=== PATIENT | female | born 1965 | race Two or more races ===

== ENCOUNTER 2021-02-08 21:54 | Emergency (ER) | payer SELFPAY ==
--- NOTE | 2021-02-08 22:53 | CR ---
Indication: Left foot Pain Technique: Three views of the left foot. Comparison: None Findings: A fracture of the base of the 5th metatarsal is identified. A small plantar calcaneal spur is identified. Mild degenerative changes are identified. Impression: Fracture the base of the 5th metatarsal Dictated by Nancy Munoz MD @ 02/08/2021 10:52:20 PM (Electronically Signed)
[2021-02-08] MEDS ORDERED: traMADol 50 MG Tab PO ONE (23:23)
[2021-02-08] MEDS ORDERED: Ibuprofen 600 MG Tab PO ONE (23:23)
--- NOTE | 2021-02-08 23:37 | EDM.PDOC ---
ED HPI GENERAL MEDICAL PROBLEM - General Chief Complaint: Lower Extremity Injury/Pain Stated Complaint: LT FOOT PAIN Time Seen by Provider: 02/08/21 22:40 - History of Present Illness INITIAL COMMENTS - FREE TEXT/NARRATIVE: HISTORY AND PHYSICAL: History of present illness: This is a 55-year-old female with a history significant for hypertension diabetes who presents ER today secondary to pain to her left fifth metatarsal for approximately 7 to 10 days. Patient reports that she has had frequent falls in the past and thinks that she might of fallen prior to the initiation of the pain. Patient denies any recent fevers, shakes, chills, nausea, vomiting, diarrhea. Patient denies any alcohol or drug use. Patient reports that she smokes 1 cigarette every 3 to 4 days. Patient reports that she is recently diagnosed with pancreatic cancer. Review of systems: As per history of present illness and below otherwise all systems reviewed and negative. Past medical history: As per history of present illness and as reviewed below otherwise noncontributory. Surgical history: As per history of present illness and as reviewed below otherwise noncontributory. Social history: No reported history of drug abuse. Family history: As per history of present illness and as reviewed below otherwise noncontributory. Physical exam: This patient was seen and evaluated during the 2019 SARS-CoV-2 novel coronavirus pandemic period. Community viral transmission is ongoing at time of this encounter and the emergency department is operating under pandemic response procedures. Constitutional: Patient is oriented to person, place, and time. Appears well- developed and well-nourished. No distress. HEENT: Moist mucous membranes Head: Normocephalic and atraumatic Eyes: Right eye exhibits no discharge. Left eye exhibits no discharge. No scleral icterus Neck: Normal range of motion. No tracheal deviation present. Cardiovascular: Normal rate and regular rhythm. Pulmonary: Effort normal, no respiratory distress. Abdominal: No distention Musculoskeletal: Normal range of motion Neurologic: Alert and oriented to person, place and time. Skin: [place], warm and dry. Psychiatric: Normal mood and affect. Behavior is normal. Judgment and thought content normal. Nursing note and vital signs have been reviewed Patient's ER physical exam is significant for tenderness to palpation and swelling over the base of her fifth metatarsal. Diagnostics: X-ray of left foot: Nondisplaced fracture at the base of the fifth metatarsal styloid consistent with a pseudo-Rojas fracture. Therapeutics: Hard soled shoe, crutches, ibuprofen, Ultram Assessment and plan: 55-year-old female who presents to the ER today secondary to pain to her left foot. Patient initially did not recall any injury. She reports pain has been there for approximately 1 week however after showing her the x-ray revealing a pseudo-Rojas fracture, the patient reports that she thinks she might of fallen approximately 7 to 10 days ago. Patient be placed in a hard soled shoe, crutches and pain medicines. Patient will be given follow-up with podiatry. DME note: Hard soled shoe and crutches were ordered to be used for 2 weeks. Patient has a fracture of the base of the fifth metatarsal styloid. This will help with healing of the fracture fragment. Definitive disposition and diagnosis as appropriate pending reevaluation and review of above. 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 Musculoskeletal History: Reports: None Neurological History: Reports: None Psychiatric History: Reports: None Endocrine/Metabolic History: Reports: Diabetes, Type II Dermatologic History: Reports: None - Infectious Disease History Infectious Disease History: Reports: Chicken Pox - Past Surgical History Head Surgeries/Procedures: Reports: None Social & Family History - Family History Family Medical History: No Pertinent Family History - Caffeine Use Caffeine Use: Reports: None - Recreational Drug Use Recreational Drug Use: No Review of Systems - Review of Systems Review Of Systems: See Below ED EXAM, GENERAL - Physical Exam Exam: See Below Course - Vital Signs Last Recorded V/S: Last Vital Signs Temp 97.2 F 02/08/21 22:30 Pulse 60 02/08/21 22:30 Resp 18 02/08/21 22:30 BP 152/74 H 02/08/21 22:30 Pulse Ox 99 02/08/21 22:30 - Orders/Labs/Meds Orders: Active Orders 24 hr Category Date Time Status DME for Discharge [COMM] Stat Oth 02/08/21 23:23 Ordered Meds: Medications Discontinued Medications Generic Name Dose Route Start Last Admin Trade Name Dom PRN Reason Stop Dose Admin Ibuprofen 600 mg 02/08/21 23:23 02/08/21 23:35 Ibuprofen 600 Mg Tab PO 02/08/21 23:24 600 mg ONETIME ONE Administration Tramadol HCl 50 mg 02/08/21 23:23 02/08/21 23:35 Tramadol 50 Mg Tab PO 02/08/21 23:24 50 mg ONETIME ONE Administration Departure - Departure Time of Disposition: 23:36 Disposition: Home, Self-Care 01 Condition: Good Clinical Impression: Fracture of base of fifth metatarsal bone of left foot Qualifiers: Encounter type: initial encounter Fracture type: closed Qualified Code(s): S92.352A - Displaced fracture of fifth metatarsal bone, left foot, initial encounter for closed fracture - Discharge Information Instructions: Crutch Use, Adult, [id number], Cast or Splint Care, Adult, [id number], Metatarsal Fracture Referrals: PCP,None [Primary Care Provider] - Forms: ED Department Discharge Additional Instructions: You were seen and evaluated in the ER today secondary to pain to your left foot. The x-ray reveals a fracture through the base of the fifth metatarsal styloid. This to be treated with a hard soled shoe and crutches for assistance with pain. You can weight-bear as tolerated. Please follow-up with podiatry in the next 1 to 2 weeks for reevaluation. You will be given the phone number for Dr. Reid. You will be given a prescription for ibuprofen and Ultram to help you with your pain and discomfort. Please call Dr. Khang Reid at the [facility]. The phone number is [phone]. He is located at [address] [place] [address], [address], [place], [place]. The following information is given to patients seen in the emergency department who are being discharged to home. This information is to outline your options for follow-up care. We provide all patients seen in our emergency department with a follow-up referral. The need for follow-up, as well as the timing and circumstances, are variable depending upon the specifics of your emergency department visit. If you don't have a primary care physician on staff, we will provide you with a referral. We always advise you to contact your personal physician following an emergency department visit to inform them of the circumstance of the visit and for follow-up with them and/or the need for any referrals to a consulting specialist. The emergency department will also refer you to a specialist when appropriate. This referral assures that you have the opportunity for follow-up care with a sp ecialist. All of these measure are taken in an effort to provide you with optimal care, which includes your follow-up. Under all circumstances we always encourage you to contact your private physicia n who remains a resource for coordinating your care. When calling for follow-up care, please make the office aware that this follow-up is from your recent emergency room visit. If for any reason you are refused follow-up, please contact the [facility] Department at and asked to speak to the emergency department charge nurse. [facility] [address] [place] [address] [id number] [address] [address] Sepsis Event Note (ED) - Focused Exam Vital Signs: Vital Signs Temp Pulse Resp BP Pulse Ox 02/08/21 22:30 97.2 F 60 18 152/74 H 99 - My Orders Last 24 Hours: My Active Orders 02/08/21 23:23 DME for Discharge [COMM] Stat - Assessment/Plan Last 24 Hours: My Active Orders 02/08/21 23:23 DME for Discharge [COMM] Stat
== END 2021-02-09 | disposition home or self-care (01) ==
LOC: MW.ED 21:54
DX: S92.352A Displaced fracture of fifth metatarsal bone, left foot, initial encounter for closed fracture (principal); J45.909 Unspecified asthma, uncomplicated; K21.9 Gastro-esophageal reflux disease without esophagitis; F17.210 Nicotine dependence, cigarettes, uncomplicated; E11.9 Type 2 diabetes mellitus without complications; Z79.84 Long term (current) use of oral hypoglycemic drugs; Z79.899 Other long term (current) drug therapy; X58.XXXA Exposure to other specified factors, initial encounter
CPT/HCPCS: 73630; 99283; A9270

== ENCOUNTER 2021-03-10 13:10 | Emergency (ER) | payer OTHER ==
--- NOTE | 2021-03-10 13:21 | EDM.PDOC ---
ED HPI GENERAL MEDICAL PROBLEM - General Chief Complaint: Lower Extremity Injury/Pain Stated Complaint: LT FOOT INJURY Time Seen by Provider: 03/10/21 13:12 Source of Information: Reports: Patient History Limitations: Reports: No Limitations - History of Present Illness INITIAL COMMENTS - FREE TEXT/NARRATIVE: 55F PMHx NIDDM2, recently dx pancreatic CA presents for pain to L foot. Of note patient was seen in the ER 1-month ago for fifth metatarsal fracture of the same extremity. Patient notes that she never really could pinpoint the exact injury mechanism or why she broke her fifth metatarsal. States she was unable to follow-up with podiatry secondary to insurance difficulties although she now does have medical insurance. She notes that despite resting the extremity she has continued pain in her left fifth toe radiating to diffuse foot and ankle. She denies any new injuries. Left Foot Pain Score (Numeric/FACES): 10 - Related Data Allergies Allergy/AdvReac Type Severity Reaction Status Date / Time No Known Allergies Allergy Verified 03/10/21 13:14 Home Meds: Home Meds Montelukast Sodium [Singulair] 10 mg PO DAILY 02/08/21 [History] Omeprazole Magnesium [Prilosec] 10 mg PO DAILY 02/08/21 [History] Pramipexole [Mirapex] 1 mg PO DAILY 02/08/21 [History] glipiZIDE [Glipizide ER] 5 mg PO DAILY 02/08/21 [History] Ibuprofen [Motrin] 600 mg PO Q6H PRN #20 tab 03/10/21 [Rx] Past Medical History HEENT History: Reports: None Cardiovascular History: Reports: None Respiratory History: Reports: Asthma 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: Reports: GERD 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 Musculoskeletal History: Reports: None Neurological History: Reports: None Psychiatric History: Reports: None Endocrine/Metabolic History: Reports: Diabetes, Type II Dermatologic History: Reports: None - Infectious Disease History Infectious Disease History: Reports: Chicken Pox - Past Surgical History Head Surgeries/Procedures: Reports: None Social & Family History - Family History Family Medical History: No Pertinent Family History - Caffeine Use Caffeine Use: Reports: None - Recreational Drug Use Recreational Drug Use: No Review of Systems - Review of Systems Review Of Systems: Comprehensive ROS is negative, except as noted in HPI. ED EXAM, GENERAL - Physical Exam Exam: See Below Exam Limited By: No Limitations General Appearance: Alert, WD/WN, No Apparent Distress Ears: Hearing Grossly Normal Throat/Mouth: Normal Voice, No Airway Compromise Head: Atraumatic, Normocephalic Respiratory/Chest: No Respiratory Distress, No Accessory Muscle Use Cardiovascular: Normal Peripheral Pulses, Regular Rate, Rhythm Extremities: Normal Inspection, Other (Tenderness to palpation of the base of the fifth metatarsal without palpable deformity) Neurological: Alert, Normal Cognition, Normal Gait Psychiatric: Normal Affect, Normal Mood Skin Exam: Warm, Dry, Intact, Normal Color Course - Vital Signs Last Recorded V/S: Last Vital Signs Temp 97.1 F 03/10/21 13:15 Pulse 79 03/10/21 13:15 Resp 16 03/10/21 13:15 BP 127/73 03/10/21 13:15 Pulse Ox 97 03/10/21 13:15 - Orders/Labs/Meds Meds: Medications Discontinued Medications Generic Name Dose Route Start Last Admin Trade Name Freq PRN Reason Stop Dose Admin Ibuprofen 600 mg 03/10/21 13:24 Ibuprofen 600 Mg Tab PO 03/10/21 13:25 ONETIME ONE Oxycodone/Acetaminophen 1 tab 03/10/21 13:24 Acetaminophen/Oxycodone 325-5 Mg Tab PO 03/10/21 13:25 ONETIME ONE - Re-Assessments/Exams Free Text/Narrative Re-Assessment/Exam: 03/10/21 14:05 X-ray imaging shows a healing fracture, nothing acute or new. Will discharge with short course of analgesia and recommend follow-up with podiatry. Departure - Departure Time of Disposition: 14:08 Disposition: Home, Self-Care 01 Condition: Good Clinical Impression: Metatarsal fracture Qualifiers: Encounter type: subsequent encounter Metatarsal bone: fifth Fracture type: closed Fracture alignment: nondisplaced Laterality: left Fracture healing: with routine healing Qualified Code(s): S92.355D - Nondisplaced fracture of fifth metatarsal bone, left foot, subsequent encounter for fracture with routine healing - Discharge Information Prescriptions: Ibuprofen [Motrin] 600 mg PO Q6H PRN #20 tab PRN Reason: Pain Instructions: Metatarsal Fracture Forms: ED Department Discharge Additional Instructions: Please call Dr. Khang Reid at the [facility]. The phone number is [phone]. He is located at [address] [place] [address], [address], [place], [place] Pain medicine was sent to [place] [facility] which is located in the back-right corner of the [facility] [employer] [facility]. The following information is given to patients seen in the emergency department who are being discharged to home. This information is to outline your options for follow-up care. We provide all patients seen in our emergency department with a follow-up referral. The need for follow-up, as well as the timing and circumstances, are variable depending upon the specifics of your emergency department visit. If you don't have a primary care physician on staff, we will provide you with a referral. We always advise you to contact your personal physician following an emergency department visit to inform them of the circumstance of the visit and for follow-up with them and/or the need for any referrals to a consulting specialist. The emergency department will also refer you to a specialist when appropriate. This referral assures that you have the opportunity for follow-up care with a specialist. All of these measure are taken in an effort to provide you with optimal care, which includes your follow-up. Under all circumstances we always encourage you to contact your private physician who remains a resource for coordinating your care. When calling for follow-up care, please make the office aware that this follow-up is from your recent emergency room visit. If for any reason you are refused follow-up, please contact the [facility] Department at and asked to speak to the emergency department charge nurse. Please follow up with your primary care physician. If you do not have a primary care physician, see below: [facility] [address] [place] [id number] [facility] [address] [place] [address] [facility] [address] [place] [address] Sepsis Event Note (ED) - Evaluation Sepsis Screening Result: No Definite Risk - Focused Exam Vital Signs: Vital Signs Temp Pulse Resp BP Pulse Ox 03/10/21 13:15 97.1 F 79 16 127/73 97
[2021-03-10] MEDS ORDERED: Ibuprofen 600 MG Tab PO ONE (13:24)
[2021-03-10] MEDS ORDERED: Acetaminophen/oxyCODONE 325-5 MG Tab PO ONE (13:24)
--- NOTE | 2021-03-10 14:03 | CR ---
Indication: Fifth metatarsal fracture with continued pain. Technique: Left foot 2 views. Comparison: 02/08/2021. Findings: Bones: Transverse nondisplaced fracture of the base of the 5th metatarsal is incompletely healed and unchanged. No other osseous abnormality. Bone alignment is normal. Joint spaces: Unremarkable. Soft tissues: Unremarkable. Impression: Unchanged, incompletely healed fracture of the base of the 5th metatarsal. No new abnormality. Dictated by Jean Nunn MD @ 03/10/2021 2:01:45 PM (Electronically Signed)
== END 2021-03-10 14:37 | disposition home or self-care (01) ==
LOC: MW.ED 13:10
DX: S92.355D Nondisplaced fracture of fifth metatarsal bone, left foot, subsequent encounter for fracture with routine healing (principal); J45.909 Unspecified asthma, uncomplicated; K21.9 Gastro-esophageal reflux disease without esophagitis; E11.9 Type 2 diabetes mellitus without complications; Z79.84 Long term (current) use of oral hypoglycemic drugs; Z79.899 Other long term (current) drug therapy; X58.XXXD Exposure to other specified factors, subsequent encounter
CPT/HCPCS: 73620; 99283; A9270

== ENCOUNTER 2021-06-14 17:27 | Emergency (ER) | payer OTHER | END 2021-06-14 18:45 | disposition home or self-care (01) | LOC: MW.ED 17:27 | DX: H00.015 Hordeolum externum left lower eyelid (principal); E11.9 Type 2 diabetes mellitus without complications; J45.909 Unspecified asthma, uncomplicated; K21.9 Gastro-esophageal reflux disease without esophagitis; Z79.899 Other long term (current) drug therapy | CPT/HCPCS: 99282; 99283 ==

== ENCOUNTER 2021-10-28 22:25 | Emergency (ER) | payer OTHER ==
[2021-10-28] MEDS: Acetaminophen/oxyCODONE 325-5 MG Tab PO ONE (23:52)
[2021-10-28] MEDS: Cephalexin 500 MG Cap PO ONE (23:52)
== END 2021-10-28 23:56 | disposition home or self-care (01) ==
LOC: MW.ED 22:25
DX: L03.811 Cellulitis of head [any part, except face] (principal); R59.0 Localized enlarged lymph nodes; K21.9 Gastro-esophageal reflux disease without esophagitis; E11.9 Type 2 diabetes mellitus without complications; Z79.899 Other long term (current) drug therapy
CPT/HCPCS: 99283; A9270

== ENCOUNTER 2022-01-02 14:58 | Emergency (ER) | payer BC, OTHER ==
[2022-01-02] MEDS: traMADol 50 MG Tab PO ONE (16:05)
== END 2022-01-02 16:42 | disposition home or self-care (01) ==
LOC: MW.ED 14:58
DX: S80.11XA Contusion of right lower leg, initial encounter (principal); K21.9 Gastro-esophageal reflux disease without esophagitis; Z79.899 Other long term (current) drug therapy; X50.9XXA Other and unspecified overexertion or strenuous movements or postures, initial encounter
CPT/HCPCS: 73590; 99283; A9270; 99282

== ENCOUNTER 2023-03-10 15:21 | Emergency (ER) | payer OTHER ==
[2023-03-10] MEDS ORDERED: oxyCODONE 5 MG Tab PO STA (15:45)
[2023-03-10] MEDS ORDERED: Acetaminophen 500 MG Tab PO STA (15:46)
[2023-03-10] MEDS ORDERED: Acetaminophen 500 MG Tab ONE (16:13)
== END 2023-03-10 18:32 | disposition home or self-care (01) ==
LOC: MW.ED 15:21
DX: M25.562 Pain in left knee (principal); J45.909 Unspecified asthma, uncomplicated; K21.9 Gastro-esophageal reflux disease without esophagitis; E11.9 Type 2 diabetes mellitus without complications; F17.210 Nicotine dependence, cigarettes, uncomplicated; Z79.899 Other long term (current) drug therapy
CPT/HCPCS: 73562; 99283; A9270